=== PATIENT | female | born 1935 | race Caucasian/White ===

== ENCOUNTER 2020-05-15 18:50 | Emergency (ER) | payer MEDICARE, MEDICAID ==
[~2020-05-15] VITALS: Ht 160 cm; Wt 59.0 kg
[2020-05-15] MEDS ORDERED: LORAZEPAM 1MG TABLET PO ONE (20:00)
[2020-05-15] MEDS ORDERED: IBUPROFEN 600MG TABLET PO ONE (20:00)
[2020-05-15] MEDS ORDERED: LORAZEPAM 2MG/ML CPJ IV ONE (22:15)
[2020-05-15] MEDS ORDERED: SODIUM CHLORIDE 0.9% 1,000 ML IV ONE (22:15)
[2020-05-15 23:02] LABS: BASOPHILS % 0.6 % (0.0-2.0); EOSINOPHILS % 1.2 % (0.0-5.0); HEMATOCRIT. 34.2 % (36.0-48.0); HEMOGLOBIN. 11.4 g/dL (12.0-16.0); LYMPHOCYTES % 13.2 % (20.0-50.0); MEAN CORPUSCULAR HEMOGLOBIN 29.5 pg (28.0-32.0); MEAN CORPUSCULAR VOLUME 88.2 fL (81.0-99.0); MEAN PLATELET VOLUME 7.5 fl (7.4-10.4); MONOCYTES % 6.2 % (2.0-8.0); NEUTROPHILS % 78.8 % (40.0-76.0); PLATELET 264 x1000/uL (130-400); RED BLOOD CELL COUNT 3.88 mill/uL (4.2-5.4); RED CELL DISTRIBUTION WIDTH 14.7 % (11.6-14.6)
[2020-05-15 23:07] LABS: CHLORIDE 111 mEq/L (98-107)
[2020-05-15 23:10] LABS: PROTHROMBIN TIME 10.5 sec (9.6-11.0)
[2020-05-15 23:11] LABS: ETHANOL BLOOD < 10 mg/dL
[2020-05-15 23:55] VITALS: BP 110/61
== END 2020-05-15 23:59 | disposition home or self-care (01) ==
LOC: ER 20:37
DX: F41.9 Anxiety disorder, unspecified (principal); M25.562 Pain in left knee; R00.2 Palpitations; I10 Essential (primary) hypertension; Z96.659 Presence of unspecified artificial knee joint
CPT/HCPCS: 36415; 71045; 73560; 80053; 80320; 85025; 85610; 93005; 96374; 99285; J2060; J7030; G0480